=== PATIENT | female | born 1940 | race Caucasian/White ===

== ENCOUNTER 2020-07-08 17:25 | Emergency (ER) | payer MEDICARE, MEDICAID ==
[~2020-07-08] VITALS: Ht 162.5 cm; Wt 56.6 kg
[~2020-07-08 17:25] MED LIST: ASPI1TAB PO; HYDR-1231 PO; IBP600T1 PO; IBUP-30 PO; OXYC-103 PO
[2020-07-08 17:40] LABS: BASOPHILS % (AUTO) 1 % (0-10); EOSINOPHILS % (AUTO) 1 % (0-10); HEMATOCRIT 39 % (35-52); HEMOGLOBIN 13.1 G/DL (11.5-16.0); LYMPHOCYTES # (AUTO) 2.4 X 10^3 (1.0-4.0); LYMPHOCYTES % (AUTO) 29 % (12-44); MEAN CORPUSCULAR HEMOGLOBIN 32 PG (25-34); MEAN CORPUSCULAR HGB CONC 34 G/DL (32-36); MEAN CORPUSCULAR VOLUME 95 FL (80-99); MEAN PLATELET VOLUME 9.7 FL (7.4-10.4); MONOCYTES # (AUTO) 0.6 X 10^3 (0.0-1.0); MONOCYTES % (AUTO) 7 % (0-12); NEUTROPHILS # (AUTO) 5.3 X 10^3 (1.8-7.8); NEUTROPHILS % (AUTO) 63 % (42-75); PLATELET COUNT 280 10^3/uL (130-400); WHITE BLOOD COUNT 8.3 10^3/uL (4.3-11.0)
--- NOTE | 2020-07-08 17:55 | ED General ---
General Chief Complaint: General Problems/Pain Stated Complaint: SLOW SPEECH Nursing Triage Note: PT IN PER [facility] FROM CLINIC, PT AT CLINIC DUE TO SORES IN HER MOUTH FROM ABSCESS AND THE FACILITY THOUGHT HER SPEECH WAS SLOWER. IV 20 G LT FA WITH BLOOD DRAW. PT AXOX3. Nursing Sepsis Screen: No Definite Risk Source of Information: Patient Exam Limitations: No Limitations History of Present Illness Date Seen by Provider: Jul 08, 2020 Time Seen by Provider: 17:55 Initial Comments To ER by EMS from [facility] [place] [facility] urgent care with reports of slow speech intermittent trouble swallowing water for one month and 1 week according to the patient. She has been taking 2 cetirizine per day but her last dose was 2 days ago. She otherwise takes no medications. Timing/Duration: 1-2 Days Severity: Moderate Associated Systoms: No Chest Pain, No Cough, No Diaphoresis, No Fever/Chills Allergies and Home Medications Allergies Coded Allergies: No Known Drug Allergies (Unverified , 02/18/15) Home Medications Aspirin/Acetaminophen/Caffeine 1 Tab Tablet, 2 TAB PO Q6H PRN for HEADACHE, (Reported) Ibuprofen 200 Mg Tablet, 400-600 MG PO Q6H PRN for PAIN, (Reported) TAKES 2 TO 3 (200MG) TABLETS Ibuprofen 600 Mg Tab, 600 MG PO Q6H PRN for PAIN Prescribed by: DENISE PITT on 03/01/151941 Oxycodone Hcl/Acetaminophen 1 Tab Tablet, 1-2 TAB PO Q4H PRN for PAIN, (Reported) Patient Home Medication List Home Medication List Reviewed: Yes Review of Systems Review of Systems Constitutional: see HPI EENTM: see HPI Respiratory: no symptoms reported Cardiovascular: no symptoms reported Genitourinary: no symptoms reported Musculoskeletal: no symptoms reported Skin: no symptoms reported Psychiatric/Neurological: No Symptoms Reported Hematologic/Lymphatic: No Symptoms Reported Past Zxwqnyb-[id number]-Apgicc Hx Patient Social History Recent Foreign Travel: No Contact w/Someone Who Travel: No Recent Infectious Disease Expo: No Immunizations Up To Date Tetanus Booster (TDap): Unknown PED Vaccines UTD: No Past Medical History Reproductive Disorders: No Female Reproductive Disorders: Denies Sexually Transmitted Disease: No HIV/AIDS: No Loss of Vision: Denies Hearing Impairment: Denies Adverse Reaction/Blood Tranf: No Family Medical History No Pertinent Family Hx Physical Exam Vital Signs Vital Signs - First Documented 07/08/20 17:29 Temp 36.6 Pulse 82 Resp 15 B/P (MAP) 171/88 (115) Pulse Ox 99 O2 Delivery Room Air Capillary Refill : Less Than 3 Seconds Height, Weight, BMI Height: 5'4" Weight: 139lbs. 2.0oz. 63.167486rw; 21.00 BMI Method:Stated General Appearance: No Apparent Distress, WD/WN Eyes: Bilateral Eye Normal Inspection, Bilateral Eye PERRL, Bilateral Eye EOMI HEENT: PERRL/EOMI Neck: Full Range of Motion, Normal Inspection Respiratory: No Accessory Muscle Use, No Respiratory Distress Cardiovascular: Regular Rate, Rhythm, Normal Peripheral Pulses Gastrointestinal: Normal Bowel Sounds, Non Tender, Soft Extremity: Normal Capillary Refill, Normal Inspection Neurologic/Psychiatric: Alert, Oriented x3, Other (speech is very slow but clear. She has no aphasia her NIH is 0.) Skin: Normal Color, Warm/Dry (no) Progress/Results/Core Measures Suspected Sepsis Recent Fever Within 48 Hours: No Infection Criteria Present: None New/Unexplained Altered Menta: No Sepsis Screen: No Definite Risk SIRS Temperature: Pulse: 82 Respiratory Rate: 15 Laboratory Tests 07/08/20 17:30: White Blood Count 8.3 Blood Pressure 171 /88 Mean: 115 Laboratory Tests 07/08/20 17:30: Creatinine 0.68, INR Comment 1.0, Platelet Count 280, Total Bilirubin 0.5 Results/Orders Lab Results Laboratory Tests Test 07/08/20 17:30 07/08/20 18:34 Range/Units White Blood Count 8.3 4.3-11.0 10^3/uL Red Blood Count 4.11 L 4.35-5.85 10^6/uL Hemoglobin 13.1 11.5-16.0 G/DL Hematocrit 39 35-52 % Mean Corpuscular Volume 95 80-99 FL Mean Corpuscular Hemoglobin 32 25-34 PG Mean Corpuscular Hemoglobin Concent 34 32-36 G/DL Red Cell Distribution Width 12.2 10.0-14.5 % Platelet Count 280 130-400 10^3/uL Mean Platelet Volume 9.7 7.4-10.4 FL Neutrophils (%) (Auto) 63 42-75 % Lymphocytes (%) (Auto) 29 12-44 % Monocytes (%) (Auto) 7 0-12 % Eosinophils (%) (Auto) 1 0-10 % Basophils (%) (Auto) 1 0-10 % Neutrophils # (Auto) 5.3 1.8-7.8 X 10^3 Lymphocytes # (Auto) 2.4 1.0-4.0 X 10^3 Monocytes # (Auto) 0.6 0.0-1.0 X 10^3 Eosinophils # (Auto) 0.0 0.0-0.3 10^3/uL Basophils # (Auto) 0.0 0.0-0.1 10^3/uL Prothrombin Time 13.6 12.2-14.7 SEC INR Comment 1.0 0.8-1.4 Activated Partial Thromboplast Time 37 H 24-35 SEC Sodium Level 141 135-145 MMOL/L Potassium Level 3.5 L 3.6-5.0 MMOL/L Chloride Level 104 98-107 MMOL/L Carbon Dioxide Level 25 21-32 MMOL/L Anion Gap 12 5-14 MMOL/L Blood Urea Nitrogen 15 7-18 MG/DL Creatinine 0.68 0.60-1.30 MG/DL Estimat Glomerular Filtration Rate > 60 BUN/Creatinine Ratio 22 Glucose Level 97 70-105 MG/DL Calcium Level 10.3 H 8.5-10.1 MG/DL Corrected Calcium 10.1 8.5-10.1 MG/DL Magnesium Level 1.9 1.6-2.4 MG/DL Total Bilirubin 0.5 0.1-1.0 MG/DL Aspartate Amino Transf (AST/SGOT) 36 H 5-34 U/L Alanine Aminotransferase (ALT/SGPT) 29 0-55 U/L Alkaline Phosphatase 99 40-136 U/L Ammonia 27 11-32 UMOL/L Troponin I < 0.028 <0.028 NG/ML Total Protein 8.0 6.4-8.2 GM/DL Albumin 4.3 3.2-4.5 GM/DL TSH [place] Testing 1.87 0.35-4.94 UIU/ML Serum Alcohol < 10 <10 MG/DL Urine Color YELLOW Urine Clarity SL CLOUDY Urine pH 5.5 5-9 Urine Specific [place] >=1.030 1.016-1.022 Urine Protein 1+ H NEGATIVE Urine Glucose (UA) NEGATIVE NEGATIVE Urine Ketones 2+ H NEGATIVE Urine Nitrite NEGATIVE NEGATIVE Urine Bilirubin NEGATIVE NEGATIVE Urine Urobilinogen 0.2 < = 1.0 MG/DL Urine Leukocyte Esterase 2+ H NEGATIVE Urine RBC (Auto) TRACE-I NEGATIVE Urine RBC 0-2 /HPF Urine WBC 25-50 H /HPF Urine Crystals PRESENT H /LPF Urine Amorphous Sediment RARE MACARIO URATES H /LPF Urine Bacteria TRACE /HPF Urine Casts NONE /LPF Urine Mucus NEGATIVE /LPF Urine Culture Indicated YES My Orders Orders - FLO JIMENEZ [employer] Ns Iv 500 Ml (Sodium Chloride 0.9%) (07/08/20 19:30) Ceftriaxone For Iv Use (Rocephin For I (07/08/20 19:30) Vital Signs/I&O 07/08/20 07/08/20 17:29 18:40 Temp 36.6 Pulse 82 74 Resp 15 13 B/P (MAP) 171/88 (115) 154/93 (113) Pulse Ox 99 97 O2 Delivery Room Air Room Air Capillary Refill : Less Than 3 Seconds Blood Pressure Mean: 115 Diagnostic Imaging Diagonstic Imaging: CT Comments NAME: [facility] FOR[facility] REC#: [id number] PT STATUS: REG ER : 1940 PHYSICIAN: MAGDALENO ANTUNEZ DO ADMIT DATE: 07/08/20/ER Draft Date of Exam:07/08/20 CT HEAD/MAXILLOFACIAL WO EXAMINATION: CT brain and CT maxillofacial dated 07/08/2020. TECHNIQUE: Multiple contiguous axial images were obtained through the head and facial bones without the use of intravenous contrast. Auto Exposure Controls were utilized during the CT exam to meet ALARA standards for radiation dose reduction. INDICATION: Trauma, slurred speech. COMPARISONS: None. FINDINGS: BRAIN: Chronic ischemic changes are seen in a periventricular distribution. No hemorrhage, mass, mass effect, or midline shift. No hydrocephalus. There is diffuse atrophy. The calvarium is intact. Paranasal sinuses and mastoid air cells are clear. IMPRESSION: 1. Chronic change throughout the brain with no acute process. CT MAXILLOFACIAL: There is mild mucosal thickening within the sinuses. No air-fluid levels. No fractures. Both orbits are intact. Postseptal spaces are unremarkable. IMPRESSION: 1. No acute abnormality. Dictated on workstation # [id number] Dict: 07/08/20 1756 Trans: 07/08/207 AS6 [id number] Interpreted by: SON MELO MD Electronically signed by: Departure Communication (Admissions) Notified Dr. Petersen of my plan, she'll see the patient in follow-up. Impression Primary Impression: Dysarthria Additional Impression: Urinary tract infection Qualified Codes: N30.00 - Acute cystitis without hematuria Disposition: HOME, SELF-CARE Condition: Stable Departure-Patient Inst. Decision time for Depature: 19:28 Referrals: ANTHONY PETERSEN MD (PCP/Family) Primary Care Physician Patient Instructions: Urinary Tract Infection, Adult (DC) Add. Discharge Instructions: 1. Call Dr. Petersen tomorrow to make an appointment to be seen. Take the antibiot ics as directed. Return to ER for any worsening. All discharge instructions reviewed with patient and/or family. Voiced underst anding. FLO JIMENEZ [employer] Jul 08, 2020 17:55
[2020-07-08 18:04] LABS: ALANINE AMINOTRANSFERASE 29 U/L (0-55); ALBUMIN 4.3 GM/DL (3.2-4.5); ALKALINE PHOSPHATASE 99 U/L (40-136); AMMONIA 27 UMOL/L (11-32); BILIRUBIN,TOTAL 0.5 MG/DL (0.1-1.0); BUN/CREATININE RATIO 22; CALCIUM 10.3 MG/DL (8.5-10.1); CARBON DIOXIDE 25 MMOL/L (21-32); CHLORIDE 104 MMOL/L (98-107); CREATININE SERUM 0.68 MG/DL (0.60-1.30); GFR ESTIMATED > 60; GLUCOSE 97 MG/DL (70-105); MAGNESIUM 1.9 MG/DL (1.6-2.4); POTASSIUM 3.5 MMOL/L (3.6-5.0); SODIUM 141 MMOL/L (135-145)
--- NOTE | 2020-07-08 18:07 | Diagnostic Imaging Report ---
EXAMINATION: CT brain and CT maxillofacial dated 07/08/2020. TECHNIQUE: Multiple contiguous axial images were obtained through the head and facial bones without the use of intravenous contrast. Auto Exposure Controls were utilized during the CT exam to meet ALARA standards for radiation dose reduction. INDICATION: Trauma, slurred speech. COMPARISONS: None. FINDINGS: BRAIN: Chronic ischemic changes are seen in a periventricular distribution. No hemorrhage, mass, mass effect, or midline shift. No hydrocephalus. There is diffuse atrophy. The calvarium is intact. Paranasal sinuses and mastoid air cells are clear. IMPRESSION: 1. Chronic change throughout the brain with no acute process. CT MAXILLOFACIAL: There is mild mucosal thickening within the sinuses. No air-fluid levels. No fractures. Both orbits are intact. Postseptal spaces are unremarkable. IMPRESSION: 1. No acute abnormality. Dictated by: Dictated on workstation # [id number]
[2020-07-08 18:15] LABS: PROTHROMBIN TIME PATIENT 13.6 SEC (12.2-14.7)
[2020-07-08 18:25] LABS: TSH (THYROID ANALYZER) 1.87 UIU/ML (0.35-4.94)
--- NOTE | 2020-07-08 18:37 | NUR ---
PT ASSISTED TO BR FOR URINE COLLECTION. PT DID SHUFFLE HER FEET, BUT STATED IT WAS BECAUSE SHE HAD A STIFF CALF MUSCLE IN RIGHT SIDE.
--- NOTE | 2020-07-08 18:39 | Diagnostic Imaging Report ---
INDICATION: Stroke symptoms, slurred speech. EXAMINATION: Chest, 07/08/2020. FINDINGS: The lungs are hyperinflated. There are increased markings in the apices likely cephalization of blood flow with pulmonary vascular congestion noted and cardiomegaly also seen. There is a small to moderate hiatal hernia. No effusion. IMPRESSION: Findings of pulmonary edema with findings of COPD. Dictated by: Dictated on workstation # [id number]
[2020-07-08 18:40] VITALS: BP 154/93
[2020-07-08 18:42] LABS: BILIRUBIN,URINE NEGATIVE (NEGATIVE); CLARITY,URINE SL CLOUDY; COLOR,URINE YELLOW; GLUCOSE, URINE (UA) NEGATIVE (NEGATIVE); KETONES,URINE 2+ (NEGATIVE); LEUKOCYTE ESTERASE ,URINE 2+ (NEGATIVE); NITRITE,URINE NEGATIVE (NEGATIVE); PH,URINE 5.5 (5-9); PROTEIN,URINE 1+ (NEGATIVE)
[2020-07-08 19:07] LABS: RBC,URINE 0-2 /HPF; WBC,URINE 25-50 /HPF
[2020-07-08 19:08] LABS: BACTERIA,URINE TRACE /HPF
[2020-07-08 19:10] LABS: AMORPHOUS SEDIMENT,UR RARE AMOR URATES /LPF
[2020-07-08] MEDS ORDERED: cefTRIAXone FOR IV USE 1,000 MG in WATER (STERILE) FOR INJECTION 10 ML IV ONE (19:30)
[2020-07-08 19:32] LABS: AMPHETAMINE SCREEN, URINE NEGATIVE (NEGATIVE); BENZODIAZEPINES SCREEN URINE NEGATIVE (NEGATIVE); CANNABINOID SCREEN, URINE NEGATIVE (NEGATIVE); COCAINE SCREEN URINE NEGATIVE (NEGATIVE); METHAMPHETAMINE SCREEN URINE S NEGATIVE (NEGATIVE); OPIATE SCREEN URINE NEGATIVE (NEGATIVE)
[2020-07-08 19:33] LABS: BARBITURATE SCREEN URINE NEGATIVE (NEGATIVE); METHADONE STAT NEGATIVE (NEGATIVE); OXYCODONE STAT NEGATIVE (NEGATIVE); PROPOXYPHENE STAT NEGATIVE (NEGATIVE); TRICYCLIC ANTIDEPRESSANTS SCRE NEGATIVE (NEGATIVE)
[2020-07-08] MEDS: NS IV 500 ML 500 ML IV SCH ×2 (19:34→20:31)
[2020-07-08 20:15] VITALS: BP 154/93
--- NOTE | 2020-07-08 20:19 | NUR ---
PT BEGAN TO GET UPSET AND FRUSTRATED WITH THE STAFF, PT WAS CALLING UP FRONT TO THE [facility] [employer] AND YELLING AT THEM. 2027 ASSISTED PT TO AMBULANCE FRONT SEAT WITH DISCHARGE INSTRUCTIONS.
== END 2020-07-08 20:32 | disposition home or self-care (01) ==
LOC: EDUNIT# 17:25 → ER 17:26
DX: R47.1 Dysarthria and anarthria (principal); N39.0 Urinary tract infection, site not specified; Z79.82 Long term (current) use of aspirin
CPT/HCPCS: 70450; 70486; 71045; 80053; 80306; 81000; 82140; 83735; 84443; 84484; 85025; 85610; 85730; 87088; 93005; 93041; 99284; G0480; 36415; 80320